=== PATIENT | female | born 1970 | race Caucasian/White ===

== ENCOUNTER 2022-01-06 05:41 | Day surgery (SDC) | payer BC ==
[2022-01-06] MEDS ORDERED: Lactated Ringers 1,000 ML IV ONE (05:43)
[2022-01-06] MEDS ORDERED: Lactated Ringers 1,000 ML IV SCH (06:00)
[2022-01-06] MEDS ORDERED: DIPRIVAN 200 MG/20 ML IV ONE ×2 (06:52→07:13)
[2022-01-06] MEDS ORDERED: Versed 2 MG/2 ML Injection ONE (06:52)
--- NOTE | 2022-01-06 07:39 | OP ---
SURGERY DATE/TIME: 01/06/2022 PREOPERATIVE DIAGNOSIS: Screening exam. POSTOPERATIVE DIAGNOSES: 1) Normal colon. 2) Poor prep. PROCEDURE: Colonoscopy. SURGEON: Dr. Jono Call. ANESTHESIA: MAC. Medications given by anesthesia department. HISTORY: The patient is a 51-year-old white female presenting now for screening colonoscopy. She was appraised of the risks of the procedure including the risk of perforation, phlebitis, untoward reaction to medication, bleeding and missed lesions. The patient verbalized her understanding and desired to have the procedure performed. DESCRIPTION OF PROCEDURE: The patient was given the medications by the anesthesia department. She had continuous pulse oximetry, ECG monitoring, intermittent blood pressure monitoring during the examination. She was placed in the left lateral decubitus position. A digital rectal examination was performed and revealed normal anal sphincter tone and no masses. The flexible Olympus pediatric colonoscope was used to intubate the rectum. A view of the colon was developed sequentially to the cecum. Upon insertion and withdrawal, including a retroflex view in the rectum, no mucosal lesions were encountered. It was noted however that the patient had a poor to inadequate prep. We suctioned at least 1,000 cc of liquid stool during the examination having some semisolid areas plugging up the port at times. The patient was taken back to OP recovery in good condition.
[2022-01-06 08:16] VITALS: BP 130/85; PULSE 63; O2SAT 99
== END 2022-01-06 08:36 | disposition home or self-care (01) ==
LOC: SDC 05:41
PROVIDERS: ATTEND Family Medicine
DX: Z12.11 Encounter for screening for malignant neoplasm of colon (principal)
CPT/HCPCS: J2250; J2704